=== PATIENT | male | born 2000 | race Hispanic/Latino ===

== ENCOUNTER 2022-08-17 20:25 | Emergency (ER) | payer OTHER ==
[~2022-08-17] VITALS: Ht 170.2 cm; Wt 66.2 kg
[2022-08-17] MEDS ORDERED: DICYCLOMINE HCL 10 MG/5 ML ML PO ONE (21:30)
[2022-08-17] MEDS ORDERED: MAG/ALUM/SIMETH 30 ML UDCUP PO ONE (21:30)
[2022-08-17] MEDS ORDERED: LIDOCAINE HCL 2% VISCOUS 15 ML UDCUP PO ONE (21:30)
[2022-08-17 22:37] VITALS: BP 121/85
== END 2022-08-17 22:52 | disposition home or self-care (01) ==
LOC: EDH 20:25
DX: K29.70 Gastritis, unspecified, without bleeding (principal)